=== PATIENT | male | born 1945 | race Caucasian/White ===

== ENCOUNTER 2019-04-06 17:29 | Emergency (ER) | payer MEDICARE, OTHER ==
[~2019-04-06] VITALS: Ht 165.1 cm; Wt 81.8 kg
[2019-04-06 17:39] VITALS: BP 110/60; PULSE 62; RESP 19; Ht 165.1 cm; Wt 81.8 kg
--- NOTE | 2019-04-06 19:43 | ERD ---
ER Documentation Chief Complaint Chief Complaint POST OP PROBLEM ( EYE SURGERY) HPI The patient is a 73-year-old male, presenting to the ER because of bleeding from the left upper eyelid about 5p, he had bilateral blepharoplasty 6 days ago, has been on his Xarelto for the last 4 days. He denies any bleeding from the eye, denies syncope, near syncope, neck pain, chest pain, dyspnea, abdominal pain, vomiting, dysuria, diarrhea. He is taking tobramycin eyedrop as well. Past medical history: Diabetes CAD, hypertension, atrial fibrillation Past surgical history: Pacemaker, CABG ROS All systems reviewed and are negative except as per history of present illness. Physical Exam Vitals Vital Signs Date Temp Pulse Resp B/P (MAP) Pulse Ox O2 O2 Flow FiO2 Time Delivery Rate 04/06/19 98.0 62 19 110/60 94 17:39 (77) Physical Exam Const: No acute distress. Head: Atraumatic. Eyes: Normal Conjunctiva. Left upper eyelid with minimal bleeding at the surgical site, no hematoma, no active bleeding ENT: Normal External Ears, Nose and Mouth. Neck: Full range of motion. No meningismus. Resp: Clear to auscultation bilaterally. Cardio: Irregularly irregular Abd: Soft, non distended, normal bowel sounds, non tender. Skin: No petechiae or rashes. Back: No midline or flank tenderness. Ext: No cyanosis, or edema. Neur: Awake and alert. No focal deficit Psych: Normal Mood and Affect. Procedures/MDM MEDICAL MAKING DECISION: The patient is a 73-year-old male, presenting with acute postoperative bleeding, is stable for outpatient follow-up The differential diagnoses considered include but are not limited to infection, hematoma, seroma, coagulopathy Departure Diagnosis: Primary Impression: Post-op bleeding Condition: Good Comments I discussed the findings with the patient. I advised the patient to follow-up with his surgeon in the morning and and return if any concern. Disclaimer: Inadvertent spelling and grammatical errors are likely due to EHR/dictation software use and do not reflect on the overall quality of patient care. Also, please note that the electronic time recorded on this note does not necessarily reflect the actual time of the patient encounter. MARTHA DALTON MD Apr 06, 2019 19:43
[2019-04-06] MEDS ORDERED: PHENYLephrine 10% 5 ML OPH LEFT EYE ONE (22:00)
== END 2019-04-06 20:22 | disposition home or self-care (01) ==
LOC: E/R 17:29
DX: H59.323 Postprocedural hemorrhage of eye and adnexa following other procedure, bilateral (principal); I10 Essential (primary) hypertension; I25.10 Atherosclerotic heart disease of native coronary artery without angina pectoris; E11.9 Type 2 diabetes mellitus without complications; Z95.0 Presence of cardiac pacemaker; Z95.1 Presence of aortocoronary bypass graft
CPT/HCPCS: 99282